=== PATIENT | male | born 1955 | race Caucasian/White ===

== ENCOUNTER 2018-03-17 02:09 | Emergency (ER) | payer OTHER, SELFPAY ==
[2018-03-17 02:21] VITALS: BP 165/85; PULSE 68; RESP 14; TEMP 36.6; O2SAT 96; BMI 20.9
--- NOTE | 2018-03-17 02:40 | ED.HA ---
HPI - Headache General Chief Complaint: Headache Stated Complaint: SEVERE SINUS PAIN Time Seen by Provider: 03/17/18 02:14 Source: patient and family Mode of arrival: ambulatory Limitations: no limitations History of Present Illness HPI Narrative: 62-year-old male with history pacemaker presents to emergency department with chief complaint of 4 months of sinusitis. He admits to frontal headache which is worse with palpation and motion of his head. He has had significant nasal drainage, often yellowish from both nostrils. He denies any fever chills nor focal neurologic findings such as blurred vision, trouble with speech or numbness tingling or weakness. He does state he seen his primary care provider a few times for this and has tried multiple antihistamines as well as intranasal decongestant. He has tried Neti pots and has an appointment with ENT later in the week MD Complaint: headache Onset (ago): month(s) Onset description: gradual Location: frontal Severity: moderate Quality: throbbing Relieving factors: nothing Exacerbating factors: light and noise Associated symptoms: nausea and photophobia Other symptoms: cough Related Data Previous Rx's Medication Instructions Recorded amoxicillin-pot clavulanate 1 tab PO BID #20 tab 03/17/18 [Augmentin] ketorolac 10 mg PO Q6H PRN #14 tab 03/17/18 Allergies Allergy/AdvReac Type Severity Reaction Status Date / Time No Known Drug Allergies Allergy Verified 03/17/18 02:25 Review of Systems Review of Systems All systems reviewed & are unremarkable except as noted in HPI and below Constitutional Denies chills, Denies fever(s), Reports headache(s), Denies lethargy and Denies weakness Eyes Denies change in vision, Denies eye discharge, Denies irritation and Denies loss of vision ENT Ears, Nose, Mouth, and Throat: Denies change in voice, Reports facial pain, Reports headache(s), Denies neck pain and Denies sore throat Cardiovascular Denies chest pain, Denies irregular heart rhythm, Denies lightheadedness, Denies palpitations, Denies dyspnea, Denies dyspnea on exertion and Denies orthopnea Respiratory Reports cough, Denies dyspnea, Denies dyspnea on exertion and Denies wheezing Gastrointestinal Gastrointestinal: Denies abdominal pain, Denies change in bowel habits, Denies diarrhea, Denies nausea and Denies vomiting Genitourinary Denies hematuria, Denies flank pain, Denies urinary incontinence and Denies urinary urgency Musculoskeletal Denies neck pain Integumentary/Breasts Denies pruritus, Denies erythema, Denies rash and Denies wounds Neurologic Denies confusion, Reports headache(s), Denies loss of vision and Denies weakness Psychiatric Denies anxiety, Denies confusion, Denies depression, Denies homicidal ideation and Denies suicidal ideation Endocrine Denies palpitations Hematologic/Lymphatic Denies easy bruising Allergic/Immunologic Denies wheezing FOR[facility]LY [facility] Social History Smoking Status: Never smoker Exam Initial Vital Signs Initial Vital Signs: Vital Signs Temperature 97.8 F 03/17/18 02:21 Pulse Rate 68 03/17/18 02:21 Respiratory Rate 14 03/17/18 02:21 Blood Pressure 165/85 H 03/17/18 02:21 Pulse Oximetry 96 03/17/18 02:21 Const General: cooperative, well developed and in distress Nutritional Appearance: well nourished Orientation: alert, awake, oriented x3 and not confused HENMT Head: normocephalic and atraumatic Ears: external ears normal and TM's normal bilaterally Nose: external nose normal and No nasal discharge Face and sinus: normal transillumination of the sinuses, sinus tenderness frontal, ethmoid and maxillary and No dry mucous membranes Mouth: oral mucosae normal and moist mucous membranes Teeth and gingiva: dentition normal Throat: tonsils normal and uvula midline Eyes General: appearance normal, both eyes and all related structures Eyelids: eyelids normal Conjunctivae: conjunctivae normal Sclera: sclerae normal Pupils: PERRL EOM: EOM intact bilaterally Resp Effort & Inspection: normal respiratory effort, able to speak in complete sentences, no respiratory distress and no use of accessory muscles Auscultation: clear to auscultation bilaterally, no rales, no rhonchi and no wheezes Cardio Rate: regular rate Rhythm: regular rhythm Heart Sounds: no click, no gallops, no murmurs and no rubs Pulses: normal peripheral pulses GI Inspection: non-distended Palpation: soft, no hepatosplenomegaly, No guarding, No pulsatile mass and No tender Auscultation: normal bowel sounds Skin General: no rashes or lesions noted, No jaundice and No petechiae Neuro General: alert, oriented x3, gait normal and no focal motor deficits Speech: speech normal Course Orders Ordered: Discontinued Medications Amoxicillin/Clavulanate Potassium (Augmentin 875-125 Mg) 1 tab PO NOW ONE Stop: 03/17/18 02:40 Last Admin: 03/17/18 02:46 Dose: 1 tab Ketorolac Tromethamine (Toradol) 30 mg IM NOW ONE Stop: 03/17/18 02:41 Last Admin: 03/17/18 02:46 Dose: 30 mg Vital Signs - 8 hr 03/17/18 02:21 Temperature 97.8 F Pulse Rate 68 Respiratory Rate 14 Blood Pressure 165/85 H Pulse Oximetry 96 MDM - Headache Differential Diagnosis Differential diagnosis: Likely migraine, tension headache, subarachnoid hemorrhage, headache, meningitis, sinusitis and postconcussion syndrome Discharge Plan Departure Patient Disposition: Home, Self-Care Clinical Impression: Headache, Sinusitis Discharge Date/Time: 03/17/18 03:12 Interventions: ED Discharge Assessment Last Done: 03/17/18 03:11 Instructions: DI for Sinusitis Activity Restrictions/Additional Instructions: *You have been diagnosed with [ chronic sinusitis with headache ] *What to do: *Take medications as directed; your prescriptions have been electronically transmitted to the [facility] at your request *Follow up with your ENT doctor later in the week as planned. It may benefit you to call the office on Monday to let them know you in the emergency department and it may get the use seen sooner or at least it will let them know you were in the emergency department so they can obtain our records *Return to ER if you should have any new, worsening or concerning symptoms, such as [ neurologic symptoms such as blurred vision, difficulty with speech or numbness and tingling of the extremities] Prescriptions: New amoxicillin-pot clavulanate [Augmentin] 875-125 mg tablet 1 tab PO BID Qty: 20 RF: 0 ketorolac 10 mg tablet 10 mg PO Q6H PRN (Reason: pain) Qty: 14 RF: 0
[2018-03-17] MEDS: AMOXICILLIN/CLAV 875/125 MG 1 TAB PO (02:46)
[2018-03-17] MEDS: KETOROLAC 60 MG/2 ML VIAL 30 MG IM (02:46)
== END 2018-03-17 03:12 | disposition home or self-care (01) ==
PROVIDERS: Emergency Provider Emergency Medicine; PCP Family Medicine
DX: R51 Headache (principal); J01.90 Acute sinusitis, unspecified
CPT/HCPCS: 96372; 99282; 99283; J1885

== ENCOUNTER → 2020-08-04 08:22 | Outpatient (CLI) | payer OTHER, SELFPAY ==
--- NOTE | 2020-08-04 | DI.RAD.S_ITS ---
PROCEDURE: XR SHOULDER RT MIN 2V INDICATIONS: Rt shoulder pain 3 view TECHNIQUE: 3 views of the shoulder were acquired. COMPARISON: None. FINDINGS: Bones: No acute fractures or dislocations. The AC joint is mildly degenerated and distorted. No suspicious bony lesions. Visualized ribs appear intact. Soft tissues: No suspicious soft tissue calcifications. IMPRESSION: Mild arthritic change at the AC joint. The morphology of the a chromium also could result from prior trauma. It is mildly distorted. Dictated by: Luis Fernando Lozano M.D. on 08/04/2020 at 9:19 Approved by: Luis Fernando Lozano M.D. on 08/04/2020 at 9:20
[2020-08-04 10:37] LABS: Cholesterol 290 mg/dL (140-199); HDL Cholesterol 65 mg/dL (40-60); LDL Cholesterol Calculated 177 mg/dL (<100); Triglycerides 239 mg/dL (35-150)
== END ==
PROVIDERS: Referring Provider Physician Assistant; Visit Provider Internal Medicine
DX: M25.511 Pain in right shoulder (principal); E78.5 Hyperlipidemia, unspecified
CPT/HCPCS: 36415; 73030; 80061

== ENCOUNTER → 2022-10-08 09:23 | Outpatient (CLI) | payer OTHER, SELFPAY ==
[2022-10-08 10:55] LABS: Prostate Specific Antigen 3.05 ng/mL (0.10-4.00)
[2022-10-08 10:59] LABS: Cortisol AM (Before 10AM) 1.54 ug/dL (4.46-22.7)
== END ==
PROVIDERS: PCP Internal Medicine; Referring Provider Internal Medicine; Visit Provider Internal Medicine
DX: Z00.00 Encounter for general adult medical examination without abnormal findings (principal); E24.9 Cushing's syndrome, unspecified; R22.0 Localized swelling, mass and lump, head
CPT/HCPCS: 36415; 82533; 84153

== ENCOUNTER → 2022-10-13 08:09 | Outpatient (CLI) | payer OTHER, SELFPAY ==
[2022-10-13 09:50] LABS: Cortisol AM (Before 10AM) 1.52 ug/dL (4.46-22.7)
== END ==
PROVIDERS: PCP Internal Medicine; Referring Provider Internal Medicine; Visit Provider Internal Medicine
DX: E24.9 Cushing's syndrome, unspecified (principal); R22.0 Localized swelling, mass and lump, head
CPT/HCPCS: 36415; 82533

== ENCOUNTER → 2022-10-22 13:38 | Outpatient (CLI) | payer OTHER, SELFPAY ==
[2022-11-02 18:38] LABS: Salivary Cortisol #1 <0.010 ug/dL (.); Salivary Cortisol #2 <0.010 ug/dL (.)
== END ==
PROVIDERS: PCP Internal Medicine; Referring Provider Internal Medicine; Visit Provider Internal Medicine
DX: E24.9 Cushing's syndrome, unspecified (principal)
CPT/HCPCS: 82533

== ENCOUNTER 2022-12-03 18:17 | Emergency (ER) | payer OTHER, SELFPAY ==
[2022-12-03] VITALS (11 sets, daily range): BP systolic 103–140; BP diastolic 56–79; PULSE 67–88; RESP 17–22; TEMP 36.6; O2SAT 97–100; BMI 26.9
--- NOTE | 2022-12-03 18:24 | ED_ITS ---
HPI - Syncope General Chief Complaint: Syncope Stated Complaint: passed out light headed t-14 Time Seen by Provider: 12/03/22 18:24 History of Present Illness HPI narrative: 67-year-old male Nonsmoker with history of hypertension, cardiomyopathy, pacemaker on aspirin, hyperlipidemia presents with his in the chief complaint of a syncopal episode earlier today. He states that he had been in a seated position for somewhere between 15 and 30 minutes and stood up and after taking a few steps towards some furniture he began to feel lightheaded and then eased himself to the ground and sounds like was nearly syncopal but still had his eyes open. reports that she saw his extremities briefly twitching, this episode lasted about 45 seconds before he returned to his baseline level of alertness. He denies recent trauma or injury. He is had no fever or chills and denies nausea, vomiting or diarrhea. He is had no changes in medications. He does report that in the big picture he is had multiple episodes of dizziness or lightheadedness particularly upon changing position but this is the 1st time he actually passed out. His primary care provider has been working him up for some facial swelling, muscle aches and fatigue and there is a referral in for endocrinology. Patient denies chest pain or palpitations. He is asymptomatic during our visit. He denies headache or blurred vision. He denies any neck pain, chest pain, palpitations or shortness of breath. Denies any pain or swelling of 1 extremity or the other. He admits to the occasional foul-smelling drainage from his left nostril but has had no fever, face pain and no symptoms currently Related Data Home Medications Medication Instructions Recorded Confirmed allopurinol 300 mg tablet 300 mg PO DAILY 10/07/22 11/07/22 aspirin 81 mg tablet,delayed 81 mg PO DAILY 10/07/22 11/07/22 release atorvastatin 80 mg tablet 80 mg PO DAILY 10/07/22 11/07/22 carvedilol 25 mg tablet 25 mg PO BID 10/07/22 11/07/22 hydrochlorothiazide 25 mg tablet 25 mg PO DAILY 10/07/22 11/07/22 sacubitril 97 mg-valsartan 103 mg 1 tab PO BID 10/07/22 11/07/22 tablet (Entresto) spironolactone 50 mg tablet 50 mg PO DAILY 10/07/22 11/07/22 Previous Rx's Medication Instructions Recorded dexamethasone 1 mg tablet 1 mg PO ONCE HS #1 tab 10/07/22 Allergies Allergy/AdvReac Type Severity Reaction Status Date / Time No Known Drug Allergies Allergy Verified 12/03/22 18:31 Review of Systems Review of Systems Narrative: GENERAL: Denies chills, fatigue, malaise, fever, sweats. HEENT: See HPI RESPIRATORY: Denies dyspnea, cough, wheezing, hemoptysis, sputum. CARDIOVASCULAR: See HPI GASTROINTESTINAL: Denies nausea, vomiting, abdominal pain, diarrhea, constipation, melena. : Denies dysuria, frequency, incontinence, hematuria, urinary retention. MUSCULOSKELETAL: denies weakness, joint pain, or bony pain SKIN: Denies rash, skin lesions, or other NEUROLOGIC: Denies weakness, headache, numbness, change in speech, confusion, seizures, incoordination. PSYCHIATRIC: No concerning psychosocial issues. 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 Well-developed patient, in mild distress. HEAD: Atraumatic. Normocephalic. EYES: Pupils equal round and reactive. Extraocular motions intact. No scleral icterus. No injection or drainage. ENT: Nose without bleeding, purulent drainage. Throat without erythema, tonsillar hypertrophy or exudate. Airway patent. NECK: Trachea midline. Non tender CARDIOVASCULAR: Regular rate and rhythm without murmurs, gallops, or rubs. RESPIRATORY: Clear to auscultation. Breath sounds equal bilaterally. No wheezes, rales, or rhonchi. GASTROINTESTINAL: Abdomen soft, non-tender, nondistended. EXTREMITIES: No edema or joint tenderness. BACK: Nontender without deformity or crepitance. No flank tenderness. NEURO: AOx3. SKIN: No rash or erythema of visible areas Initial Vital Signs Initial Vital Signs: Vital Signs Pulse Rate 81 12/03/22 18:22 Blood Pressure 119/56 L 12/03/22 18:22 Pulse Oximetry 97 12/03/22 18:22 Course Course Course Narrative: Orthostatics unremarkable, pacemaker has been interrogated, no abnormal rate or rhythm in the past few days, most recent event was on the 30th and a brief episode of heart rate in the 150s. He is done orthostatics that are unremarkable and ambulates through the department without difficulty Orders Ordered: ED Orders 12/03/22 18:28 Chest [XR chest 1V] Stat 12/03/22 18:30 Complete Blood Count AUTO DIFF Stat Comprehensive Metabolic Panel Stat Lipase Stat Magnesium Stat NT-proBNP (BNP-Adult 18+) Stat Prothrombin Time INR Stat Troponin & CK Cardiac Panel Stat 12/03/22 18:40 EKG-12 Lead Stat Vital Signs Vital signs: Vital Signs - 8 hr 12/03/22 18:27 12/03/22 18:22 12/03/22 18:22 Temperature 97.9 F Pulse Rate 85 81 Respiratory Rate 18 Blood Pressure 119/56 L 119/56 L Blood Pressure [Orthostatic Lying] Blood Pressure [Orthostatic Sitting] Blood Pressure [Orthostatic Standing] Pulse Oximetry 99 97 Oxygen Delivery Method Room Air 12/03/22 18:30 12/03/22 19:00 12/03/22 19:15 Temperature Pulse Rate 85 74 Respiratory Rate 21 22 Blood Pressure 115/73 Blood Pressure [Orthostatic Lying] Blood Pressure [Orthostatic Sitting] Blood Pressure [Orthostatic Standing] Pulse Oximetry 98 98 Oxygen Delivery Method 12/03/22 19:15 12/03/22 19:30 12/03/22 19:30 Temperature Pulse Rate 78 67 Respiratory Rate Blood Pressure 103/58 L Blood Pressure [Orthostatic Lying] Blood Pressure [Orthostatic Sitting] Blood Pressure [Orthostatic Standing] Pulse Oximetry 98 100 Oxygen Delivery Method 12/03/22 20:29 Temperature Pulse Rate Respiratory Rate Blood Pressure Blood Pressure [Orthostatic Lying] 105/61 Blood Pressure [Orthostatic Sitting] 115/63 Blood Pressure [Orthostatic Standing] 119/67 Pulse Oximetry Oxygen Delivery Method MDM - Syncope Lab Data 12/03/22 18:30 12/03/22 18:30 Labs: Lab Results 12/03/22 12/03/2223 Range/Units 18:30 18:30 18:30 WBC 6.1 (4.5-11.0) X10^3/uL RBC 3.07 L (4.5-5.9) X10^6/uL Hgb 10.3 L (13.5-17.5) g/dL Hct 29.7 L (41-53) % MCV 96.6 (80-100) fL MCH 33.6 (26-34) PG MCHC 34.8 (30-36) % RDW 14.2 (11.6-14.8) % Plt Count 321 (150-400) X10^3/uL Neut % (Auto) 59.0 (50-75) % Lymph % (Auto) 25.4 (25-40) % [place] % (Auto) 13.6 (3-14) % Eos % (Auto) 0.7 L (2-4) % Baso % (Auto) 1.3 (0-2) % Neut # (Auto) 3600 (3721-0530) /uL Lymph # (Auto) 1500 (0946-2966) /uL [place] # (Auto) 800 (0-900) /uL Eos # (Auto) 0 (0-450) /uL Baso # (Auto) 100 (0-100) /uL PT 12.7 (10.1-12.7) SECONDS INR 1.1 (0.9-1.3) Sodium 135 L (137-145) mmol/L Potassium 4.2 (3.4-5.1) mmol/L Chloride 99 (98-107) mmol/L Carbon Dioxide 27 (22-32) mmol/L BUN 24 H (9-20) mg/dL Creatinine 1.08 (0.66-1.25) mg/dL Estimated GFR > 60 (>60) mL/min BUN/Creatinine Ratio 22.2 H (6-22) Glucose 132 H (80-110) mg/dL Calcium 8.9 (8.4-10.2) mg/dL Magnesium 1.5 L (1.6-2.3) mg/dL Total Bilirubin 0.5 (0.2-1.3) mg/dL AST 29 (17-59) IU/L ALT 28 (<50) IU/L Alkaline Phosphatase 73 (38-126) U/L Total Creatine Kinase 46 L (55-170) U/L CK-MB (CK-2) TNP CK-MB (CK-2) Rel Index TNP Troponin I < 0.012 (0.01-0.034) ng/mL NT-Pro-B Natriuret Pep 67 (<125) pg/mL Total Protein 6.5 (6.3-8.2) g/dL Albumin 3.7 (3.5-5.0) g/dL Globulin 2.8 (1.7-4.1) g/dL Albumin/Globulin Ratio 1.3 (1.0-2.8) Lipase 42 (23-300) U/L MDM Narrative Medical decision making narrative: CC: 67-year-old male with syncope versus near syncopal event Complicating co-morbidities: Age, pacemaker, hypertension, hyperlipidemia Data collected from: Patient Medical records reviewed: Prior notes reviewed in our EMR Differential considered, but not limited to: Orthostatic syncope, cardiogenic, electrolyte abnormality versus other Exam documented above, pertinent findings include: No focal neurologic findings, heart rate regular, lungs clear, nonlabored breathing, abdomen soft, well-hydrated Lab Test results independently reviewed as above. Pertinent findings: No leukocytosis or left shift, hemoglobin is 10, no priors to compare, perhaps relatively anemic, no significant electrolyte function abnormalities, troponin negative Independently reviewed EKG as above Imaging studies independently reviewed: No acute process Discussion: Patient with brief near syncopal or syncopal event today. He had been seated for some time and shortly after standing and taking a few steps he developed prodromal symptoms and had a brief syncopal episode with resolution in less than 1 minute. Seizure considered but thought unlikely given this description, lack of postictal phase. Arrhythmia considered, however his pacemaker was interrogated and no abnormal findings noted. Labs are unremarkable. He has been under the care of his primary care provider evaluating for muscle weakness and aching which has been present for upwards of a year. He denies any recent medication change, change in diet, vomiting or diarrhea. Patient has no abnormal orthostatic findings, his ambulatory in the department without symptoms. History and physical are reassuring, labs unremarkable, EKG and pacer interrogation without significant findings. Patient appropriate for discharge and encouraged to follow closely with his primary care provider. Both he and understand and agree with diagnosis and plan. Disposition: see below, along with detailed discharge instructions that have been reviewed with patient as well as indications for ED re-evaluation and additional outpatient follow up Discharge Plan Departure Patient Disposition: Home Clinical Impression: Orthostatic syncope Instructions: DI for Syncope in Adults (Fainting) Activity Restrictions/Additional Instructions: *You have been diagnosed with [syncope or near-syncope, most likely related to change in position. As we discussed your history and physical as well as labs, EKG are very reassuring and at this time there is no indication of a significant diagnosis that would require further investigation or intervention.] *What to do: *Please continue to take your regular medications as directed. [ ] New medication prescriptions sent to your pharmacy: [ ] [ ] New medication written as a paper prescription [ ] No new medications given *Please follow up with your primary care provider in 2-3 days, call for an appointment. Let them know you were seen in the Emergency Department and that we ask that you be seen in follow up. We will electronically transmit a record of today's note if your PCP is in our system *If you do not have a primary care provider please contact the [facility] Resource line at [phone]. They will ask some questions about your medical h istory and help get you set up with a doctor in the community. *Return to Emergency Department if you should have any new, worsening or concerning symptoms, such as [fever greater than 101 F, shaking chills, worsening pain, persistent vomiting or other bothersome symptoms] Prescriptions: No Action carvedilol 25 mg tablet 25 mg PO BID hydrochlorothiazide 25 mg tablet 25 mg PO DAILY spironolactone 50 mg tablet 50 mg PO DAILY atorvastatin 80 mg tablet 80 mg PO DAILY allopurinol 300 mg tablet 300 mg PO DAILY Entresto 97-103 mg tablet 1 tab PO BID aspirin 81 mg tablet,delayed release (DR/EC) 81 mg PO DAILY dexamethasone 1 mg tablet 1 mg PO ONCE HS Qty: 1 0RF Referrals: Eleazar Padron MD [Primary Care Provider] - Stand Alone Forms: Patient Portal/API
--- NOTE | 2022-12-03 18:28 | DI.RAD.S_ITS ---
PROCEDURE: XR CHEST 1V INDICATIONS: syncope, pace maker TECHNIQUE: One view of the chest was acquired. COMPARISON: None. FINDINGS: Surgical changes and devices: left-sided cardiac pacer device is in place. Lungs and pleura: Lungs are clear. No pleural effusions or pneumothorax. Mediastinum: Mediastinal contours appear normal. Heart size is normal. Bones and chest wall: No suspicious bony lesions. Overlying soft tissues appear unremarkable. IMPRESSION: No acute cardiopulmonary abnormalities or focal airspace disease. Dictated by: Everett Davis M.D. on 12/03/2022 at 19:14 Approved by: Everett Davis M.D. on 12/03/2022 at 19:14
[2022-12-03 18:38] LABS: Add Manual Diff / Slide Review NO; Basophils Absolute Auto 100 /uL (0-100); Basophils Percent Auto 1.3 % (0-2); Eosinophils Absolute Auto 0 /uL (0-450); Eosinophils Percent Auto 0.7 % (2-4); Hematocrit 29.7 % (41-53); Hemoglobin 10.3 g/dL (13.5-17.5); Lymphocytes Absolute Auto 1500 /uL (1100-4500); Lymphocytes Percent Auto 25.4 % (25-40); Mean Corpuscular HGB Conc 34.8 % (30-36); Mean Corpuscular Hemoglobin 33.6 PG (26-34); Mean Corpuscular Volume 96.6 fL (80-100); Monocytes Absolute Auto 800 /uL (0-900); Monocytes Percent Auto 13.6 % (3-14); Neutrophils Absolute Auto 3600 /uL (1500-7000); Platelet Count 321 X10^3/uL (150-400); Red Blood Cell Count 3.07 X10^6/uL (4.5-5.9); Red Cell Distribution Width 14.2 % (11.6-14.8); White Blood Cell Count 6.1 X10^3/uL (4.5-11.0)
[2022-12-03 18:44] LABS: INR 1.1 (0.9-1.3); Prothrombin Time 12.7 SECONDS (10.1-12.7)
[2022-12-03 18:49] LABS: Alanine Aminotransferase 28 IU/L (<50); Albumin 3.7 g/dL (3.5-5.0); Albumin Globulin Ratio 1.3 (1.0-2.8); Alkaline Phosphatase 73 U/L (38-126); Aspartate Aminotransferase 29 IU/L (17-59); BUN Creatinine Ratio 22.2 (6-22); Bilirubin Total 0.5 mg/dL (0.2-1.3); Blood Urea Nitrogen 24 mg/dL (9-20); Calcium 8.9 mg/dL (8.4-10.2); Carbon Dioxide 27 mmol/L (22-32); Chloride 99 mmol/L (98-107); Creatine Kinase 46 U/L (55-170); Estimated Glomerular Filt Rate > 60 mL/min (>60); Globulin 2.8 g/dL (1.7-4.1); Glucose 132 mg/dL (80-110); HEMOLYSIS < 15 (0-50); Lipase 42 U/L (23-300); Magnesium 1.5 mg/dL (1.6-2.3); Potassium 4.2 mmol/L (3.4-5.1); Sodium 135 mmol/L (137-145); Total Protein 6.5 g/dL (6.3-8.2)
--- NOTE | 2022-12-03 18:53 | PC.NURSE ---
[employer] Pacemaker interrogated at 1848. Faxed report received.
[2022-12-03 19:01] LABS: NT-proBNP (BNP-Adult 18+) 67 pg/mL (<125); Troponin I < 0.012 ng/mL (0.01-0.034)
--- NOTE | 2022-12-03 19:07 | PC.NURSE ---
Addendum entered by Mirella Flores R.N. 12/03/22 19:13: Pt also reports history of facial swelling with unknown origin that begun in July. Original Note: Pt reports standing at home then beginning to feel lightheaded, nauseous with some pounding in ears then witnessed collapse and twitching of all his extremities with LOC by . Pt has hx of pacemaker for low ejection fraction. Pt also reports history of lightheadedness, muscle weakness, decrease energy, decrease appetite for past month. Seeing Dr. Padron and has been referred to an boat worker for potentially low cortisal levels. Appointment with boat worker is later in December.
--- NOTE | 2022-12-03 19:12 | PC.NURSE ---
Pt reports chronic numbness and tingling to right hand for long time.
--- NOTE | 2022-12-03 20:33 | PC.NURSE ---
Ambulation trial per provider verbal direction. Pt was steady on feet. Denied lightheadedness, SOB or chest pain. Pt states I felt fine.
== END 2022-12-03 20:57 | disposition home or self-care (01) ==
PROVIDERS: Emergency Provider Emergency Medicine; PCP Internal Medicine
DX: I95.1 Orthostatic hypotension (principal); Z95.0 Presence of cardiac pacemaker
CPT/HCPCS: 36415; 71045; 80053; 82550; 83690; 83735; 83880; 84484; 85025; 85610; 93005; 99283; 99284

== ENCOUNTER → 2022-12-07 12:10 | Outpatient (CLI) | payer OTHER, SELFPAY ==
[2022-12-07 12:50] LABS: Add Manual Diff / Slide Review NO; Basophils Absolute Auto 0 /uL (0-100); Basophils Percent Auto 0.6 % (0-2); Eosinophils Absolute Auto 0 /uL (0-450); Eosinophils Percent Auto 0.4 % (2-4); Hematocrit 28.3 % (41-53); Lymphocytes Absolute Auto 1600 /uL (1100-4500); Mean Corpuscular HGB Conc 35.3 % (30-36); Mean Corpuscular Hemoglobin 34.3 PG (26-34); Monocytes Absolute Auto 1000 /uL (0-900); Monocytes Percent Auto 13.3 % (3-14); Neutrophils Absolute Auto 4900 /uL (1500-7000); Neutrophils Percent Auto 64.7 % (50-75); Platelet Count 324 X10^3/uL (150-400); Red Blood Cell Count 2.91 X10^6/uL (4.5-5.9); Red Cell Distribution Width 13.6 % (11.6-14.8); White Blood Cell Count 7.6 X10^3/uL (4.5-11.0)
[2022-12-07 13:19] LABS: BUN Creatinine Ratio 15.7 (6-22); Blood Urea Nitrogen 24 mg/dL (9-20); Calcium 8.8 mg/dL (8.4-10.2); Carbon Dioxide 30 mmol/L (22-32); Chloride 96 mmol/L (98-107); Estimated Glomerular Filt Rate 50 mL/min (>60); Glucose 125 mg/dL (80-110); HEMOLYSIS < 15 (0-50); Potassium 4.3 mmol/L (3.4-5.1); Sodium 135 mmol/L (137-145)
[2022-12-07 13:24] LABS: HEMOLYSIS < 15 (0-50); Iron 58 ug/dL (49-181)
[2022-12-07 13:36] LABS: Percent Iron Saturation 19 % (20-50); Total Iron Binding Capacity 300 ug/dL (261-462); Transferrin 238 mg/dL (206-381)
[2022-12-07 13:52] LABS: TSH w/ Reflex to FT4 0.25 uIU/mL (0.47-4.68)
[2022-12-07 13:54] LABS: Ferritin 124 ng/mL (18-464)
[2022-12-07 15:07] LABS: Free T4, Direct Thyroxine 2.16 ng/dL (0.78-2.19)
== END ==
PROVIDERS: PCP Internal Medicine; Referring Provider Internal Medicine; Visit Provider Internal Medicine
DX: E27.40 Unspecified adrenocortical insufficiency (principal)
CPT/HCPCS: 36415; 80048; 82728; 83540; 83550; 84439; 84443; 85025

== ENCOUNTER → 2023-01-05 12:39 | Outpatient (CLI) | payer OTHER, SELFPAY ==
[2023-01-05 14:25] LABS: Add Manual Diff / Slide Review NO; Basophils Absolute Auto 0 /uL (0-100); Basophils Percent Auto 0.9 % (0-2); Eosinophils Absolute Auto 100 /uL (0-450); Eosinophils Percent Auto 1.4 % (2-4); Hematocrit 25.8 % (41-53); Hemoglobin 9.2 g/dL (13.5-17.5); Lymphocytes Absolute Auto 1400 /uL (1100-4500); Lymphocytes Percent Auto 24.9 % (25-40); Mean Corpuscular HGB Conc 35.5 % (30-36); Mean Corpuscular Hemoglobin 33.6 PG (26-34); Mean Corpuscular Volume 94.8 fL (80-100); Monocytes Absolute Auto 800 /uL (0-900); Monocytes Percent Auto 13.9 % (3-14); Neutrophils Absolute Auto 3300 /uL (1500-7000); Neutrophils Percent Auto 58.9 % (50-75); Platelet Count 387 X10^3/uL (150-400); Red Blood Cell Count 2.72 X10^6/uL (4.5-5.9); Red Cell Distribution Width 13.7 % (11.6-14.8); White Blood Cell Count 5.6 X10^3/uL (4.5-11.0)
[2023-01-05 14:26] LABS: Reticulocyte Count, Percent 1.3 % (0.9-2.6)
[2023-01-05 14:49] LABS: Erythrocyte Sedimentation Rate 103 MM/HR (0-15)
[2023-01-05 17:05] LABS: HEMOLYSIS < 15 (0-50)
[2023-01-05 17:24] LABS: HEMOLYSIS < 15 (0-50); Iron 26 ug/dL (49-181)
[2023-01-05 17:36] LABS: Alanine Aminotransferase 13 IU/L (<50); Albumin 3.7 g/dL (3.5-5.0); Albumin Globulin Ratio 1.2 (1.0-2.8); Alkaline Phosphatase 60 U/L (38-126); Aspartate Aminotransferase 27 IU/L (17-59); BUN Creatinine Ratio 21.5 (6-22); Bilirubin Total 0.4 mg/dL (0.2-1.3); Blood Urea Nitrogen 17 mg/dL (9-20); C-Reactive Protein Quant 4.8 mg/dL (<1.0); Calcium 9.5 mg/dL (8.4-10.2); Carbon Dioxide 25 mmol/L (22-32); Chloride 103 mmol/L (98-107); Estimated Glomerular Filt Rate > 60 mL/min (>60); Globulin 3.1 g/dL (1.7-4.1); Glucose 97 mg/dL (80-110); Lactate Dehydrogenase 183 U/L (120-246); Potassium 4.8 mmol/L (3.4-5.1); Sodium 136 mmol/L (137-145); Total Protein 6.8 g/dL (6.3-8.2)
[2023-01-05 17:37] LABS: Percent Iron Saturation 9 % (20-50); Total Iron Binding Capacity 291 ug/dL (261-462); Transferrin 219 mg/dL (206-381)
[2023-01-05 17:40] LABS: Rheumatoid Factor < 8.6 IU/mL (<12.0)
[2023-01-05 18:01] LABS: Ferritin 99 ng/mL (18-464)
[2023-01-05 18:15] LABS: Vitamin B12 707 pg/mL (239-931)
[2023-01-08 03:04] LABS: CCP Antibodies IgG/IgA 7 units (0-19)
[2023-01-09 16:51] LABS: Albumin 2.9 g/dL (2.9-4.4); Alpha-1-Globulin 0.3 g/dL (0.0-0.4); Alpha-2-Globulin 0.8 g/dL (0.4-1.0); Gamma Globulin 0.8 g/dL (0.4-1.8); Globulin Total 2.9 g/dL (2.2-3.9); Protein, Total 5.8 g/dL (6.0-8.5)
[2023-01-10 14:38] LABS: ANA Screen, IFA Negative (.)
== END ==
PROVIDERS: PCP Internal Medicine; Referring Provider Internal Medicine; Visit Provider Internal Medicine
DX: D64.9 Anemia, unspecified (principal); E53.8 Deficiency of other specified B group vitamins; M13.0 Polyarthritis, unspecified; R77.9 Abnormality of plasma protein, unspecified
CPT/HCPCS: 36415; 80053; 82607; 82728; 83540; 83550; 83615; 84155; 84165; 85025; 85045; 85651; 86038; 86140; 86200; 86430

== ENCOUNTER → 2023-01-12 10:23 | Outpatient (CLI) | payer OTHER, SELFPAY ==
[2023-01-12 11:35] LABS: Uric Acid 6.7 mg/dL (3.5-8.5)
== END ==
PROVIDERS: PCP Internal Medicine; Referring Provider Internal Medicine; Visit Provider Internal Medicine
DX: M10.9 Gout, unspecified (principal)
CPT/HCPCS: 82270; 84550

== ENCOUNTER → 2023-02-15 09:45 | Outpatient (CLI) | payer OTHER, SELFPAY ==
[2023-02-15 11:11] LABS: Add Manual Diff / Slide Review NO; Basophils Absolute Auto 0 /uL (0-100); Basophils Percent Auto 0.4 % (0-2); Eosinophils Absolute Auto 0 /uL (0-450); Eosinophils Percent Auto 0.2 % (2-4); Hematocrit 34.5 % (41-53); Hemoglobin 11.6 g/dL (13.5-17.5); Lymphocytes Absolute Auto 1000 /uL (1100-4500); Lymphocytes Percent Auto 14.2 % (25-40); Mean Corpuscular HGB Conc 33.5 % (30-36); Mean Corpuscular Hemoglobin 31.7 PG (26-34); Mean Corpuscular Volume 94.6 fL (80-100); Monocytes Absolute Auto 200 /uL (0-900); Monocytes Percent Auto 3.3 % (3-14); Neutrophils Absolute Auto 5900 /uL (1500-7000); Neutrophils Percent Auto 81.9 % (50-75); Platelet Count 207 X10^3/uL (150-400); Red Blood Cell Count 3.65 X10^6/uL (4.5-5.9); Red Cell Distribution Width 17.7 % (11.6-14.8); White Blood Cell Count 7.2 X10^3/uL (4.5-11.0)
[2023-02-15 11:39] LABS: Erythrocyte Sedimentation Rate 20 MM/HR (0-15)
[2023-02-15 11:50] LABS: C-Reactive Protein Quant < 0.5 mg/dL (<1.0)
== END ==
PROVIDERS: PCP Internal Medicine; Referring Provider Internal Medicine; Visit Provider Internal Medicine
DX: D64.9 Anemia, unspecified (principal); M13.0 Polyarthritis, unspecified
CPT/HCPCS: 36415; 85025; 85651; 86140

== ENCOUNTER → 2023-06-05 10:39 | Outpatient (CLI) | payer OTHER, SELFPAY ==
--- NOTE | 2023-06-05 11:18 | DI.RAD.S_ITS ---
PROCEDURE: XR CHEST 2V INDICATIONS: Cough x 10 days TECHNIQUE: 3 views of the chest were acquired. COMPARISON: [facility], CR, XR CHEST 1V, 12/03/2022, 18:27. FINDINGS: Surgical changes and devices: Left-sided cardiac pacer device is in place. Lungs and pleura: Lungs are clear. No pleural effusions or pneumothorax. Mediastinum: Mediastinal contours are normal. Heart size is normal. Bones and chest wall: No suspicious bony abnormalities. Soft tissues appear unremarkable. IMPRESSION: No acute cardiopulmonary process. Dictated by: Fauzia Shelton M.D. on 06/05/2023 at 12:09 Approved by: Fauzia Shelton M.D. on 06/05/2023 at 12:49
[2023-06-05 11:28] LABS: Influenza A - CEPHEID Flu A POSITIVE (NEGATIVE); Influenza B - CEPHEID Flu B NEGATIVE (NEGATIVE); Respiratory Syncytial Virus Negative (Negative)
[2023-06-05 11:29] LABS: COVID-19 CEPHEID 4-PLEX PCR Negative (Negative)
== END ==
PROVIDERS: PCP Internal Medicine; Referring Provider Physician Assistant; Visit Provider Physician Assistant
DX: R05.1 Acute cough (principal); R05.9 Cough, unspecified
CPT/HCPCS: 0241U; 71046

== ENCOUNTER 2023-11-28 08:36 | Day surgery (SDC) | payer OTHER, SELFPAY ==
[2023-11-28] MEDS: LACTATED RINGERS 1,000 ML 42 ML IV (08:54)
[2023-11-28 09:05] VITALS: BP 136/75; PULSE 69; RESP 18; TEMP 36.4; O2SAT 98
--- NOTE | 2023-11-28 09:43 | P.HP_ITS ---
History of Present Illness History of Present Illness Date Patient Seen: 11/28/23 Time Patient Seen: 09:43 Chief complaint: Screening Colonoscopy Narrative: 68-year-old male here for screening colonoscopy. Last colonoscopy perhaps 15 years ago. No family history of intestinal malignancy. No abdominal concerns today. [facility] Medical History Obstructive sleep apnea Polyarthropathy Anemia Scoliosis Chronic back pain Mumps Chicken pox Primary osteoarthritis involving multiple joints Cardiomyopathy Systolic CHF, chronic Gout (~2021) Essential hypertension Facial swelling Mixed hyperlipidemia Surgical History Anesthesia History of knee surgery (~1990) S/P cardiac pacemaker procedure (~2012) Family History Father Cancer Mother Stroke Social History details: , 1 child, care support representative Smoking Status: Never smoker alcohol intake: current Meds Home Medications and Allergies Home Medications Medication Instructions Recorded Confirmed Type allopurinol 300 mg tablet 300 mg PO DAILY 10/07/22 11/28/23 History aspirin 81 mg tablet,delayed 81 mg PO DAILY 10/07/22 11/28/23 History release carvedilol 25 mg tablet 25 mg PO BID 10/07/22 11/28/23 History ezetimibe 10 mg tablet 10 mg PO DAILY 02/15/23 11/28/23 History folic acid 1 mg tablet 1 mg PO DAILY 02/15/23 11/28/23 History insulin syringe-needle U-100 1 mL #10 ea 08/10/23 11/20/23 History 31 gauge x 15/64 (BD Veo Insulin Syringe Ultra-Fine) methotrexate sodium 25 mg/mL 25 mg IM QWEEK 08/10/23 11/28/23 History injection solution adalimumab 40 mg/0.4 mL 40 mg SUBCUT Q2W soriatic arthritis 11/20/23 11/28/23 History subcutaneous pen kit sacubitril 97 mg-valsartan 103 mg 1 tab PO BID 11/28/23 11/28/23 History tablet (Entresto) Allergies Allergy/AdvReac Type Severity Reaction Status Date / Time No Known Drug Allergies Allergy Verified 11/28/23 09:00 Exam Vital Signs (past 8 hours): - 11/28/23 09:05 Temperature 97.6 F Pulse Rate 69 Respiratory Rate 18 Blood Pressure 136/75 Pulse Oximetry 98 Oxygen Delivery Method Room Air Oxygen Delivery Method Room Air Narrative Exam Narrative: General adult man alert oriented no acute distress Chest nonlabored respiration Extremities warm well perfused Assessment & Plan Assessment & Plan narrative: The patient requires colorectal screening and colonoscopy is recommended. Technical details were discussed. Risks, benefits, alternatives explained. Risks including but not limited to myocardial infarction, aspiration, bleeding, pain, missed lesion, incomplete examination, need for further radiographic studies, colonic perforation, and need for major abdominal surgery were discussed. All questions were answered to their satisfaction, and they are in agreement with this plan.
[2023-11-28 10:20] VITALS: BP 111/72; PULSE 67; RESP 12; TEMP 36.8; O2SAT 97
--- NOTE | 2023-11-28 10:23 | P.OP.COLON_ITS ---
Operative Date/Time/Diagnoses Date of procedure: 11/28/23 Time of procedure: 10:23 Pre-op diagnosis: Colorectal screening Procedure & Clinicians Study performed: Colonoscopy Same procedure as scheduled: Yes Indications: Colorectal screening Surgeon: Octavio Mcneal Procedure Notes Procedure in detail: The history and physical was performed/updated and the patient is ASA class is 2. The procedure was discussed in detail with the patient. Potential risks complications including infection, bleeding, missed diagnosis, perforation, need for surgery, and were explained. Their questions were answered and informed consent was obtained. Patient was brought to the procedure room and placed standard monitoring equipment. The patient's vital signs were monitored continuously throughout the entire procedure. Prior to starting time-out was performed. The patient was placed in the left lateral recumbent position. Procedural sedation was administered by anesthesia. Examination began with a thorough inspection of the perianal area there was no evidence of fissures, fistulae, external hemorrhoids or cutaneous malignancy. The colonoscopy scope was then placed into the anal canal and was advanced to the cecum, which was identified by the ileocecal valve , the appendiceal orifice and the confluence of the taenia. The scope was then slowly withdrawn examining colon thoroughly in all directions, irrigating it of any residual stool. The scope was retroflexed within the rectum The patient tolerated the procedure well. They will be discharged once criteria are met. The prep was of good/excellent quality. The withdrawl time was 6 minutes. FINDINGS * Unremarkable colonoscopy. Normal healthy colonic mucosa without masses, polyps, or inflammation Complications: none Impression: Normal colonoscopy Post-procedure Recommendations: Colonoscopy in 10 years Plan for aftercare: Repeat 10 years if in good health Disposition: same day surgery
[2023-11-28 10:25] VITALS: BP 107/72; PULSE 73; RESP 17; TEMP 36.8; O2SAT 96
== END 2023-11-28 10:46 | disposition home or self-care (01) ==
PROVIDERS: PCP Internal Medicine; Referring Provider Surgery; Visit Provider Surgery
PROC: 0DJD8ZZ Inspection of Lower Intestinal Tract, Via Natural or Artificial Opening Endoscopic (ICD-10-PCS; CPT 45378; principal; 2023-11-28 09:45)
DX: Z12.11 Encounter for screening for malignant neoplasm of colon (principal)
CPT/HCPCS: 45378; J2704

== ENCOUNTER → 2023-12-26 15:08 | Outpatient (CLI) | payer OTHER, SELFPAY ==
[2023-12-26 15:30] LABS: Add Manual Diff / Slide Review NO; Basophils Absolute Auto 100 /uL (0-100); Eosinophils Absolute Auto 100 /uL (0-450); Eosinophils Percent Auto 1.3 % (2-4); Hematocrit 35.1 % (41-53); Hemoglobin 11.8 g/dL (13.5-17.5); Lymphocytes Absolute Auto 1600 /uL (1100-4500); Lymphocytes Percent Auto 27.8 % (25-40); Mean Corpuscular HGB Conc 33.6 % (30-36); Mean Corpuscular Hemoglobin 32.2 PG (26-34); Mean Corpuscular Volume 95.8 fL (80-100); Monocytes Absolute Auto 500 /uL (0-900); Monocytes Percent Auto 9.1 % (3-14); Neutrophils Absolute Auto 3500 /uL (1500-7000); Neutrophils Percent Auto 60.8 % (50-75); Platelet Count 218 X10^3/uL (150-400); Red Blood Cell Count 3.67 X10^6/uL (4.5-5.9); Red Cell Distribution Width 16.5 % (11.6-14.8); White Blood Cell Count 5.7 X10^3/uL (4.5-11.0)
[2023-12-26 16:00] LABS: BUN Creatinine Ratio 20.5 (6-22); Blood Urea Nitrogen 15 mg/dL (9-20); Calcium 9.2 mg/dL (8.4-10.2); Carbon Dioxide 28 mmol/L (22-32); Chloride 107 mmol/L (98-107); Estimated Glomerular Filt Rate > 60 mL/min (>60); Glucose 97 mg/dL (80-110); HEMOLYSIS < 15 (0-50); Potassium 4.2 mmol/L (3.4-5.1); Sodium 138 mmol/L (137-145)
== END ==
PROVIDERS: PCP Internal Medicine; Referring Provider Internal Medicine Cardiovascular Disease; Visit Provider Internal Medicine Cardiovascular Disease
DX: Z45.02 Encounter for adjustment and management of automatic implantable cardiac defibrillator (principal)
CPT/HCPCS: 36415; 80048; 85025

== ENCOUNTER → 2025-02-26 08:30 | Outpatient (CLI) | payer OTHER, SELFPAY ==
[2025-02-26 09:16] LABS: Hematocrit 40.1 % (41-53); Hemoglobin 13.9 g/dL (13.5-17.5); Mean Corpuscular HGB Conc 34.8 % (30-36); Mean Corpuscular Volume 94.8 fL (80-100); Platelet Count 183 X10^3/uL (150-400); Red Blood Cell Count 4.23 X10^6/uL (4.5-5.9); Red Cell Distribution Width 13.3 % (11.6-14.8); White Blood Cell Count 6.4 X10^3/uL (4.5-11.0)
[2025-02-26 09:27] LABS: Alanine Aminotransferase 32 IU/L (<50); Albumin 4.5 g/dL (3.5-5.0); Albumin Globulin Ratio 1.8 (1.0-2.8); Alkaline Phosphatase 47 U/L (38-126); Aspartate Aminotransferase 37 IU/L (17-59); BUN Creatinine Ratio 22.8 (6-22); Bilirubin Total 0.7 mg/dL (0.2-1.3); Blood Urea Nitrogen 18 mg/dL (9-20); Calcium 9.3 mg/dL (8.4-10.2); Carbon Dioxide 30 mmol/L (22-32); Chloride 101 mmol/L (98-107); Cholesterol 241 mg/dL (140-199); Estimated Glomerular Filt Rate > 60 mL/min (>60); Globulin 2.5 g/dL (1.7-4.1); Glucose 102 mg/dL (70-99); HDL Cholesterol 85 mg/dL (40-60); HEMOLYSIS < 15 (0-50); LDL Cholesterol Calculated 140 mg/dL (<100); Potassium 4.6 mmol/L (3.4-5.1); Sodium 137 mmol/L (137-145); Triglycerides 78 mg/dL (35-150); Uric Acid 5.2 mg/dL (3.5-8.5)
[2025-02-26 09:53] LABS: Prostate Specific Antigen Scrn 4.63 ng/mL (0.1-4.0)
[2025-02-26 09:55] LABS: TSH w/ Reflex to FT4 1.52 uIU/mL (0.47-4.68)
== END ==
PROVIDERS: PCP Internal Medicine; Referring Provider Internal Medicine; Visit Provider Internal Medicine
DX: Z12.5 Encounter for screening for malignant neoplasm of prostate (principal); I42.9 Cardiomyopathy, unspecified; E78.2 Mixed hyperlipidemia; M1A.9XX0 Chronic gout, unspecified, without tophus (tophi)
CPT/HCPCS: 36415; 80053; 80061; 84443; 84550; 85027; G0103